=== PATIENT | female | born 1950 | race Caucasian/White ===

== ENCOUNTER 2017-05-07 10:33 | Outpatient (CLI) | payer OTHER ==
--- NOTE | 2017-05-07 12:58 | DIAGNOSTIC IMAGING REPORT ---
PROCEDURE: CT PELVIS WITHOUT CONTRAST INDICATION: RT BUTTOCK FULLNESS,R/O OBTURATOR HERNIA TECHNIQUE: Axial scans without and with Valsalva through the pelvis. Coronal and sagittal re-formations. COMPARISON: None. FINDINGS: No evidence of obturator hernia. 1 cm fat-containing umbilical hernia. Normal appendix. Calcified pelvic lymph nodes. The uterus, adnexa and bladder are unremarkable. No pelvic mass, inflammatory changes or free fluid. Transitional L5. IMPRESSION: 1. No evidence of obturator hernia 2. 1 cm fat-containing umbilical hernia.
== END 2017-05-08 15:49 | disposition home or self-care (01) ==
LOC: CT SRH 10:33
DX: K42.9 Umbilical hernia without obstruction or gangrene (principal)

== ENCOUNTER 2017-05-10 06:20 | Day surgery (SDC) | payer OTHER ==
[~2017-05-10] VITALS: Ht 157.5 cm; Wt 81.7 kg
--- NOTE | 2017-05-10 09:59 | Provider's Discharge Care Plan ---
Problem, Goal, Plan Problem List 1. Status post colonoscopy Goals: Screening Instructions: Follow up as needed, Take meds as directed, high fiber diet
--- NOTE | 2017-05-10 09:59 | Provider's Discharge Care Plan ---
Problem, Goal, Plan Problem List 1. Status post colonoscopy Goals: Screening Instructions: Follow up as needed, Take meds as directed, high fiber diet
--- NOTE | 2017-05-10 10:02 | Operative Report ---
Operative Report Date of Surgery: 05/10/17 Preoperate Diagnosis: change in bowel habits Postoperative Diagnosis: normal colonoscopy Surgeon: Flo Owen MD [employer] Installer [employer]per Surgeon: none Procedure Performed: Colonoscopy Anesthesia: Total intravenous anesthesia Indications: 66-year-old female, last colonoscopy approximately 13 years ago. Recent onset of change in bowel habits. Otherwise, asymptomatic. FINDINGS: Normal-appearing cecum, ascending, transverse, descending, sigmoid colon, normal rectal vault. Surgical Technique: Patient was brought to the operating room. Patient was placed in the left lateral decubitus position. Patient was administered TIVA by anesthesia. Once anesthesia had taken effect digital rectal examination was performed. No masses or stenosis was appreciated. This was then followed by the passage of a fiberoptic video flexible Olympus colonoscope. The scope was then passed without difficulty and the cecum was visualized. The cecum was identified by anatomical landmarks and anterior abdominal wall ballottement. On withdrawing the scope the aforementioned findings were noted. The scope was then retroflexed and a good view of the rectal wall obtained. The scope was then completely withdrawn. Patient tolerated procedure well. Patient was transferred to the recovery room in stable condition. There were no intraoperative or anesthetic complications.
[2017-05-10 11:24] VITALS: BP 141/78
== END 2017-05-10 11:20 | disposition home or self-care (01) ==
LOC: OR SRH 06:20 → SCU SRH 06:21 → OR SRH 07:30
PROVIDERS: Specialist
PROC: 0DJD8ZZ Inspection of Lower Intestinal Tract, Via Natural or Artificial Opening Endoscopic (ICD-10-PCS; principal; 2017-05-10 07:30)
DX: R19.4 Change in bowel habit (principal); I69.351 Hemiplegia and hemiparesis following cerebral infarction affecting right dominant side
CPT/HCPCS: 29229; 29240; 50004; 60001; 83526